=== PATIENT | male | born 1980 | race African-American/Black ===

== ENCOUNTER 2022-02-24 13:51 | Emergency (ER) | payer SELFPAY ==
[~2022-02-24] VITALS: Ht 182.9 cm; Wt 84.1 kg
[2022-02-24] MEDS ORDERED: LIDOCAINE 1%/EPI 1:100,000 20 ML VIAL. INJ ONE (14:00)
[2022-02-24] MEDS ORDERED: LIDOCAINE/EPI/TETRACAINE TOPICAL GEL 3 ML. TP ONE (14:00)
--- NOTE | 2022-02-24 14:02 | PHYS DOC ---
Past Medical History Past Medical History: Seizure Past Surgical History: No Surgical History Smoking Status: Never Smoker Alcohol Use: None Drug Use: None General Adult EDM: Chief Complaint: SYNCOPE HPI: HPI: Patient is a 41 year old male patient with history of seizures presented to the ED today by EMS to be evaluated after having a syncope episode. Patient has no recollection of what happened. EMS reports he was walking across the street from the station when one of the firemen saw him go down. Patient reports laceration to the chin. Denies any neck pain. Denies any mid or low back pain. He states he takes Keppra and Depakote for seizures. Review of Systems: Review of Systems: Constitutional: Denies fever or chills. [] Eyes: Denies change in visual acuity. [] HENT: Denies nasal congestion or sore throat. [] Respiratory: Denies cough or shortness of breath. [] Cardiovascular: Denies chest pain or edema. [] GI: Denies abdominal pain, nausea, vomiting, bloody stools or diarrhea. [] : Denies dysuria. [] Musculoskeletal: Denies back pain or joint pain. [] Integument: Reports chin laceration Neurologic: Reports syncope episode. Denies headache, focal weakness or sensory changes. [] Psychiatric: Denies depression or anxiety. [] Heart Score: C/O Chest Pain: N/A Risk Factors: Risk Factors: DM, Current or recent (<one month) smoker, HTN, HLP, family hist ory of CAD, obesity. Risk Scores: Score 0 - 3: 2.5% MACE over next 6 weeks - Discharge Home Score 4 - 6: 20.3% MACE over next 6 weeks - Admit for Clinical Observation Score 7 - 10: 72.7% MACE over next 6 weeks - Early Invasive Strategies Allergies: Allergies: Allergies Coded Allergies Type Severity Reaction Last Updated Verified No Known Drug Allergies 03/01/16 No Physical Exam: PE: Constitutional: Well developed, well nourished, no acute distress, non-toxic appearance. [] HENT: Normocephalic, atraumatic, bilateral external ears normal, oropharynx moist, no oral exudates, nose normal. [] Eyes: PERRLA, EOMI, conjunctiva normal, no discharge. [] Neck: Normal range of motion, no tenderness, supple, no stridor. [] Cardiovascular:Heart rate regular rhythm, no murmur [] Lungs & Thorax: Bilateral breath sounds clear to auscultation [] Abdomen: Bowel sounds normal, soft, no tenderness, no masses, no pulsatile masses. [] Skin: Chin with a laceration approximately 4 cm long not cutting through. Back: No tenderness, no CVA tenderness. [] Extremities: No tenderness, no cyanosis, no clubbing, ROM intact, no edema. [] Neurologic: Alert and oriented X 3, normal motor function, normal sensory function, no focal deficits noted. Cranial nerves II through XII intact Psychologic: Affect normal, judgement normal, mood normal. [] EKG: EK interpreted by Dr. Sierra sinus rhythm heart rate 71 no STEMI [] Radiology/Procedures: Radiology/Procedures: Laceration/Wound Repair Wound Location: chin Wound's Depth, Shape: Horizontal Wound Length (cm): Approximately 4 cm Wound Explored: clean Irrigated w/ Saline (ccs): 20 Betadine Prep?: Yes Anesthesia: Let solution then later around 1% of lidocaine with epinephrine Volume Anesthetic (ccs): 3 cc of let solution, 2 cc of lidocaine with epinephrine Wound Repaired With: Prolene Suture Size/Type: 3.0 and 5.0/interrupted sutures Number of Sutures: 11 Progress : Wound was left open to air PROCEDURE: CT HEAD AND CERVICAL SPINE WO EXAM: CT head and cervical spine without contrast INDICATION: Syncope COMPARISON: None TECHNIQUE: Axial CT imaging through the head and cervical spine without intravenous contrast. Sagittal and coronal reformats were obtained. One or more of the following individualized dose reduction techniques were utilized for this examination: 1. Automated exposure control 2. Adjustment of the mA and/or kV according to patient size 3. Use of iterative reconstruction technique. FINDINGS: CT head: The ventricles and sulci are normal. Simpson-white matter differentiation is maintained. There is no intracranial hemorrhage, acute infarct, or mass lesion. Basal cisterns are clear. The skull and scalp are intact. Paranasal sinuses and mastoid air cells are clear. Globes and orbits are intact.. CT cervical spine: No acute fracture. Alignment is normal. The craniocervical junction and atlantoaxial interval are maintained. Disc spaces and facet joints are normal. Prevertebral soft tissue is normal. IMPRESSION: Normal CT of the head and cervical spine. Electronically signed by: Tiana Giles MD (02/24/2022 2:27 PM) [id number] DICTATED and SIGNED BY: TIANA GILES MD DATE: 02/24/221423 PROCEDURE: PORTABLE CHEST 1V XR CHEST 1V History: Reason: syncope / Spl. Instructions: / History: Comparison: None. Findings: No consolidation or pleural effusion. Normal heart size. No pneumothorax. Impression: 1. No acute cardiopulmonary process. Electronically signed by: Isaac Estes DO (02/24/2022 2:21 PM) [facility] DICTATED and SIGNED BY: ISAAC ESTES DO DATE: 02/24/221420 Course & Med Decision Making: Course & Med Decision Making Pertinent Labs and Imaging studies reviewed. (See chart for details) This is a 41-year-old male patient with history of seizures presenting to the ED today after having a syncope episode. Patient has no recollection of what happened. Has chin laceration. CT of the head, cervical spine and chest x-ray are negative for any acute findings. CBC and CMP with no acute findings, high-sensitivity troponin is negative, EKG is negative. Valproic level 90. Lactic was ordered on this patient but not today Patient requesting to go home he is supposed to be at work at 4pm. He is awake alert and oriented X3, his laceration was also closed in the ED as noted in procedures. Tetanus was updated. He has good follow-up with his own PCP and neurologist. He was provided return precautions and discharged in stable condition. Dragon Disclaimer: Dragon Disclaimer: This electronic medical record was generated, in whole or in part, using a voice recognition dictation system. Departure Departure Impression: Primary Impression: Syncope Qualified Codes: R55 - Syncope and collapse Additional Impression: Chin laceration Qualified Codes: S01.81XA - Laceration without foreign body of other part of head, initial encounter Disposition: 01 HOME / SELF CARE / HOMELESS Condition: STABLE Referrals: DARIEN WHITE (PCP) Follow-up in 1 to 2 weeks Patient Instructions: Facial Laceration, [id number], Syncope, [id number] Additional Instructions: You were evaluated in the emergency room after a syncope episode. Your work-up in the emergency room is negative for any acute findings. You have a laceration on your chin, keep it clean and dry. You can shower and wash your face once or twice a day. Please apply Neosporin to the laceration site twice a day for 7 days. Come back to the ED in 7 days to have stitches removed please follow up with your neurologist and PCP in the next 3-7 days. Please monitor the area for any signs of infection including but not limited to increased redness, warmth, yellow drainage from the areas and return to the ED if they occur JACQUES GREEN APRN Feb 24, 2022 14:02
--- NOTE | 2022-02-24 14:24 | RAD ---
XR CHEST 1V History: Reason: syncope / Spl. Instructions: / History: Comparison: None. Findings: No consolidation or pleural effusion. Normal heart size. No pneumothorax. Impression: 1. No acute cardiopulmonary process. Electronically signed by: Isaac Estes DO (02/24/2022 2:21 PM) [facility]
--- NOTE | 2022-02-24 14:29 | RAD ---
EXAM: CT head and cervical spine without contrast INDICATION: Syncope COMPARISON: None TECHNIQUE: Axial CT imaging through the head and cervical spine without intravenous contrast. Sagitta l and coronal reformats were obtained. One or more of the following individualized dose reduction techniques were utilized for this examinat ion: 1. Automated exposure control 2. Adjustment of the mA and/or kV according to patient size 3. Use of iterative reconstruction technique. FINDINGS: CT head: The ventricles and sulci are normal. Simpson-white matter differentiation is maintained. There is no in tracranial hemorrhage, acute infarct, or mass lesion. Basal cisterns are clear. The skull and scalp are intact. Paranasal sinuses and mastoid air cells are clear. Globes and orbits are intact.. CT cervical spine: No acute fracture. Alignment is normal. The craniocervical junction and atlantoaxial interval are shaka ntained. Disc spaces and facet joints are normal. Prevertebral soft tissue is normal. IMPRESSION: Normal CT of the head and cervical spine. Electronically signed by: Tiana Giels MD (02/24/2022 2:27 PM) [id number]
[2022-02-24] MEDS ORDERED: levETIRAcetam 1,000mg PREMIX 100 ML IV ONE (14:30)
[2022-02-24 15:17] LABS: BASO % 1 % (0-3); EOS # 0.1 x10^3/uL (0.0-0.7); EOS % 1 % (0-3); HEMATOCRIT 39.8 % (39.0-53.0); HEMOGLOBIN 13.1 g/dL (13.0-17.5); LYMPH # 1.2 x10^3/uL (1.0-4.8); LYMPH % 23 % (24-48); MEAN CORPUSCULAR HEMOGLOBIN 31 pg (25-35); MEAN CORPUSCULAR HGB CONC 33 g/dL (31-37); MEAN CORPUSCULAR VOLUME 93 fL (79-100); MONO # 0.5 x10^3/uL (0.0-1.1); MONO % 10 % (0-9); NEUT # 3.4 x10^3/uL (1.8-7.7); NEUT % 65 % (31-73); PLATELET COUNT 200 x10^3/uL (140-400); RED CELL DISTRIBUTION WIDTH 12.2 % (11.5-14.5); WHITE BLOOD COUNT 5.2 x10^3/uL (4.0-11.0)
[2022-02-24] MEDS ORDERED: DIPHTH,PERTUSS(ACELL),TET TOX 0.5 ML DISP.SYRIN. VAX IM ONE (15:30)
[2022-02-24 15:38] LABS: CALCIUM 8.8 mg/dL (8.5-10.1); GFR 100.7; POTASSIUM 4.1 mmol/L (3.5-5.1)
[2022-02-24 15:44] LABS: ALBUMIN 3.6 g/dL (3.4-5.0); ALBUMIN/GLOBULIN RATIO 0.9 (1.0-1.7); MAGNESIUM 1.8 mg/dL (1.8-2.4); TOTAL BILIRUBIN 0.5 mg/dL (0.2-1.0); TOTAL PROTEIN 7.4 g/dL (6.4-8.2); VAL ACID 93 mcg/mL (50-100)
[2022-02-24 16:00] VITALS: BP 148/81
--- NOTE | 2022-02-24 16:02 | EKG ---
[facility] [address] [place] [address] Test Date: 2022-02-24 Test Time: 14:23:23 Pat Name: EDNA CAMPOS Department: Room: Gender: M [employer] Developer: : 1980 Requested By: JACQUES GREEN Order Number: [id number] Reading MD: Elvis Middleton Measurements Intervals [place] Rate: 71 P: 10 CO: 182 QRS: 7 QRSD: 88 T: 18 QT: 326 QTc: 354 Interpretive Statements SINUS RHYTHM Electronically Signed On 02-25-2022 18:09:36 CDT by Elvis Middleton
== END 2022-02-24 16:17 | disposition home or self-care (01) ==
LOC: ER 13:51
DX: S01.81XA Laceration without foreign body of other part of head, initial encounter (principal); R55 Syncope and collapse; W18.39XA Other fall on same level, initial encounter; Y93.01 Activity, walking, marching and hiking; Y92.488 Other paved roadways as the place of occurrence of the external cause; Y99.8 Other external cause status
CPT/HCPCS: 12013; 36415; 70450; 71045; 72125; 80053; 80164; 83735; 83880; 84443; 84484; 85025; 90471; 90715; 93005; 96365; 99285; J3490

== ENCOUNTER 2022-03-04 13:45 | Emergency (ER) | payer SELFPAY ==
[~2022-03-04] VITALS: Ht 182.9 cm; Wt 88.2 kg
[2022-03-04 13:50] VITALS: BP 127/69
[2022-03-04] MEDS ORDERED: MUPIROCIN 2 % OINTMENT 22GM TUBE. TP SCH (14:06)
--- NOTE | 2022-03-04 14:11 | PHYS DOC ---
Past Medical History Past Medical History: Seizure Past Surgical History: No Surgical History Smoking Status: Never Smoker Alcohol Use: None Drug Use: None General Adult EDM: Chief Complaint: SUTURE/STAPLE REMOVAL HPI: HPI: Patient is a 41 year old male who presents the ED today for suture removal from the chin. Sutures have been in for 8 days. Patient denies any issues with the wound healing. Review of Systems: Review of Systems: Constitutional: Denies fever or chills. [] Musculoskeletal: Denies back pain or joint pain. [] Integument: Visit for suture removal Neurologic: Denies headache, focal weakness or sensory changes. [] Psychiatric: Denies depression or anxiety. [] Heart Score: C/O Chest Pain: N/A Risk Factors: Risk Factors: DM, Current or recent (<one month) smoker, HTN, HLP, family history of CAD, obesity. Risk Scores: Score 0 - 3: 2.5% MACE over next 6 weeks - Discharge Home Score 4 - 6: 20.3% MACE over next 6 weeks - Admit for Clinical Observation Score 7 - 10: 72.7% MACE over next 6 weeks - Early Invasive Strategies Allergies: Allergies: Allergies Coded Allergies Type Severity Reaction Last Updated Verified No Known Drug Allergies 03/01/16 No Physical Exam: PE: Constitutional: Well developed, well nourished, no acute distress, non-toxic appearance. [] Skin: Chin with a well approximated laceration site with stitches. No signs of infection. Scabbing noted about the area Back: No tenderness, no CVA tenderness. [] Extremities: No tenderness, no cyanosis, no clubbing, ROM intact, no edema. [] Neurologic: Alert and oriented X 3, normal motor function, normal sensory function, no focal deficits noted. [] Psychologic: Affect normal, judgement normal, mood normal. [] Current Patient Data: Vital Signs: Vital Signs Date Time Temp Pulse Resp B/P (MAP) Pulse Ox O2 Delivery O2 Flow Rate FiO2 03/04/22 13:50 98.4 81 16 127/69 (88) 97 Room Air 98.4 EKG: EKG: [] Radiology/Procedures: Radiology/Procedures: [] Course & Med Decision Making: Course & Med Decision Making Pertinent Labs and Imaging studies reviewed. (See chart for details) This is a 41-year-old male patient presenting to the ED today for suture removal from the chin. 11 sutures were removed by me. Provided mupirocin for home use. Follow-up with PCP in 1 week Gilbert Disclaimer: Gilbert Disclaimer: This electronic medical record was generated, in whole or in part, using a voice recognition dictation system. Departure Departure Impression: Primary Impression: Visit for suture removal Disposition: HOME / SELF CARE / HOMELESS Condition: STABLE Referrals: NO PCP (PCP) follow up with your doctor in 1-2 weeks Patient Instructions: Suture Removal Additional Instructions: We removed stitches from your chin. Keep the area clean and dry. Apply mupirocin to the area 3 times a day for 7 days. Follow-up with your doctor in the next 1 to 2 weeks JACQUES GREEN APRN Mar 04, 2022 14:11
== END 2022-03-04 14:59 | disposition home or self-care (01) ==
LOC: ER 13:45
DX: S01.81XD Laceration without foreign body of other part of head, subsequent encounter (principal); X58.XXXD Exposure to other specified factors, subsequent encounter
CPT/HCPCS: 99283